=== PATIENT | female | born 1980 | race Two or more races ===

== ENCOUNTER 2024-11-28 06:00 | Day surgery (SDC) | payer OTHER ==
[2024-11-22 13:21] VITALS: BP 115/73
[~2024-11-28] VITALS: Ht 157.5 cm; Wt 72.1 kg
[2024-11-28] MEDS ORDERED: POVIDONE-IODINE 118 ML BOTT TOP ONE (07:23)
[2024-11-28] MEDS ORDERED: CHLORHEXIDINE GLUCONATE 120 ML BOTTLE TOP ONE (07:24)
[2024-11-28] MEDS ORDERED: IBU800 MG PO (09:41)
[2024-11-28] MEDS ORDERED: NEURONTIN300 MG PO (09:42)
[2024-11-28] MEDS ORDERED: MORPHINE SULFATE 4 MG/ML VIAL IV ONE ×2 (09:55→10:25)
== END 2024-11-28 11:30 | disposition home or self-care (01) ==
LOC: CIR.AMB 06:00
PROVIDERS: ATTEND Obstetrics & Gynecology Gynecology
DX: N75.1 Abscess of Bartholin's gland (principal); Z91.041 Radiographic dye allergy status; Z88.0 Allergy status to penicillin